=== PATIENT | female | born 1985 | race African-American/Black ===

== ENCOUNTER 2022-04-23 11:50 | Emergency (ER) | payer SELFPAY ==
[~2022-04-23] VITALS: Ht 170.2 cm; Wt 141.0 kg
[2022-04-23 11:59] VITALS: BP 209/120
[2022-04-23 15:28] LABS: BASOPHILS % 0.2 % (0.0-2.0); EOSINOPHILS % 1.4 % (0.0-5.0); HEMATOCRIT. 40.9 % (36.0-48.0); HEMOGLOBIN. 13.4 g/dL (12.0-16.0); MEAN CORPUSCULAR HEMOGLOBIN 29.8 pg (28.0-32.0); MEAN CORPUSCULAR VOLUME 91.3 fL (81.0-99.0); MEAN PLATELET VOLUME 8.4 fl (7.4-10.4); MONOCYTES % 7.8 % (2.0-8.0); NEUTROPHILS % 72.6 % (40.0-76.0); PLATELET 328 x1000/uL (130-400); RED BLOOD CELL COUNT 4.48 mill/uL (4.2-5.4); RED CELL DISTRIBUTION WIDTH 15.3 % (11.6-14.6)
[2022-04-23 15:33] LABS: CHLORIDE 103 mEq/L (98-107)
[2022-04-23] MEDS ORDERED: FAMOTIDINE 20MG TABLET PO ONE (15:45)
[2022-04-23] MEDS ORDERED: VISCOUS LIDOCAINE 2% 15 ML UDC MM PRN (15:45)
[2022-04-23] MEDS ORDERED: ONDANSETRON 4MG ODT PO ONE (15:45)
[2022-04-23] MEDS ORDERED: ONDA8TAB13 MT (17:12)
== END 2022-04-23 17:27 | disposition home or self-care (01) ==
LOC: ER 11:50
DX: R10.13 Epigastric pain (principal); R11.10 Vomiting, unspecified; F12.10 Cannabis abuse, uncomplicated; Z88.0 Allergy status to penicillin
CPT/HCPCS: 36415; 80053; 81025; 83690; 85025; 93005; 99284; Q0162